=== PATIENT | female | born 1985 | race African-American/Black ===

== ENCOUNTER 2018-05-05 05:52 | Day surgery (SDC) | payer OTHER ==
[~2018-05-05 05:52] MED LIST: Buffered Lidocaine 0.9% SYRIN* 5 ML/SYR SYRINGE INTRADERM ONE
[2018-05-05] MEDS ORDERED: Dexamethasone IV* 4 MG/ML 1 ML (4 MG) IV SLOW PU ONE (06:00)
[2018-05-05] MEDS ORDERED: Famotidine IV* 10 MG/ML 2 ML (20 mg) IV ONE (06:00)
[2018-05-05] MEDS ORDERED: Famotidine IV* 10 MG/ML 2 ML (20 mg) ONE (06:06)
[2018-05-05] MEDS ORDERED: Dexamethasone IV* 4 MG/ML 1 ML (4 MG) ONE (06:06)
[2018-05-05] MEDS ORDERED: ceFAZolin 2 GM PREMIX (*) 2 GM/50 ML BAG IVPB ONE (06:07)
[2018-05-05] MEDS ORDERED: Scopolamine 1.5 mg* PATCH ONE (06:07)
[2018-05-05] MEDS ORDERED: Methylene Blue 0.5 %* 50 MG/10 ML AMP IV ONE (07:03)
[2018-05-05] MEDS ORDERED: Bupivacaine 0.5% SDV PF* 30ML VIAL ONE (07:03)
[2018-05-05] MEDS ORDERED: Gelfoam Sponge SIZE 100* SPONGE ONE (07:04)
[2018-05-05] MEDS ORDERED: Bupivacaine 0.25% SDV* 30 ML ONE (07:07)
[2018-05-05] MEDS ORDERED: Saline, Bacteriostatic* 30 ML VIAL ONE (07:07)
[2018-05-05] MEDS ORDERED: Lidocain 1% EPI 1:100,000 * 30 ML MDV ONE (07:07)
[2018-05-05] MEDS ORDERED: fentaNYL* 50 MCG/ML 5 ML VIAL (250 MCG VIAL) ONE (07:13)
[2018-05-05] MEDS ORDERED: Atracurium* 10 MG/ML 10 ML VIAL ONE (07:13)
[2018-05-05] MEDS ORDERED: Midazolam* 1 MG/ML 5 ML VIAL (5 MG) ONE (07:13)
[2018-05-05] MEDS ORDERED: Propofol* 10 MG/ML 20 ML BTL IV PUSH ONE (07:14)
[2018-05-05] MEDS ORDERED: fentaNYL* 50 MCG/ML 2 ML VIAL (100 MCG VIAL) ONE ×5 (07:46→12:26)
[2018-05-05] MEDS ORDERED: Metoprolol Tartrate IV* 1 MG/ML 5 ML VIAL ONE (07:54)
[2018-05-05] MEDS ORDERED: fentaNYL* 50 MCG/ML 2 ML VIAL (100 MCG VIAL) IV PRN (08:10)
[2018-05-05] MEDS ORDERED: DiMENhydriNATE IV* 50 MG/ML VIAL IV PUSH PRN (08:10)
[2018-05-05] MEDS ORDERED: HYDROmorphone INJ* 1 MG/ML CARPUJECT SYRINGE IV PRN (08:10)
[2018-05-05] MEDS ORDERED: Naloxone* 0.4 MG/ML 1 ML VIAL IV PRN (08:10)
[2018-05-05] MEDS ORDERED: oxyCODONE/Acetamin 5/325 MG* TAB ONE (12:49)
[2018-05-05] MEDS ORDERED: DiMENhydriNATE IV* 50 MG/ML VIAL ONE (12:49)
[2018-05-05] MEDS: oxyCODONE/Acetamin 5/325 MG* TAB PO PRN ×2 (12:50→12:53)
[2018-05-05 13:43] VITALS: BP 121/84
== END 2018-05-05 14:05 | disposition home or self-care (01) ==
LOC: OR 05:52
PROVIDERS: ATTEND Plastic Surgery
DX: N62 Hypertrophy of breast (principal); M54.2 Cervicalgia; M54.6 Pain in thoracic spine; M54.5 Low back pain; Z87.891 Personal history of nicotine dependence
CPT/HCPCS: 36415; 81025; 86703; 88305; A9270-GY; J0690; J1100; J1240; J2250; J2704; J3010; J3490